=== PATIENT | female | born 1985 | race Two or more races ===

== ENCOUNTER 2023-01-22 21:12 | Emergency (ER) | payer OTHER ==
[~2023-01-22] VITALS: Ht 152.4 cm; Wt 57.6 kg
== END 2023-01-23 06:40 ==
LOC: ER 21:12
PROVIDERS: General Practice
DX: N39.0 Urinary tract infection, site not specified (principal); Z3A.14 14 weeks gestation of pregnancy; Z88.6 Allergy status to analgesic agent

== ENCOUNTER 2023-07-09 09:45 | Inpatient (IN) | payer OTHER ==
[~2023-07-09] VITALS: Ht 160 cm; Wt 3.2 kg
[2023-07-09 12:59] LABS: HEMATOCRIT 36.1 % (36.0-45.00); HEMOGLOBIN 12.1 g/dL (12.0-15.00); MEAN CELL VOLUME 91.3 fL (80.00-100.00); MEAN CORPUSCULAR HEMOGLOBIN 30.7 pg (27.00-32.0); MEAN CORPUSCULAR HGB CONC 33.6 g/dl (32.0-36.0); PLATELET COUNT 174 K/uL (150-450); RED BLOOD COUNT 3.96 M/uL (4.00-6.00); RED CELL DISTRIBUTION WIDTH 14.5 % (11.5-14.5)
[2023-07-09 13:25] LABS: BILIRUBIN TOTAL 0.31 mg/dL (0.3-1.2); CALCIUM 8.5 mg/dL (8.5-10.1); CREATININE SERUM 0.47 mg/dL (0.55-1.02); GFR 149.94; GLOBULINA 3.6 G/DL (2.4-3.5); POTASSIUM 3.86 mEq/L (3.5-5.1); TOTAL PROTEIN 6.6 gm/dL (6.4-8.2)
[2023-07-09 13:27] LABS: INR < 0.93; PARTIAL THROMBOPLASTIN TIME 24.4 SECONDS (22.0-34.0); PROTHROMBIN TIME 9.6 SECONDS (9.0-11.5)
[2023-07-19] MEDS ORDERED: PRENATE ELITE1 EAC2 PO (08:50)
[2023-07-19] MEDS ORDERED: CITRIC ACID/SODIUM CITRATE 30 ML BLIST.PACK PO ONE (11:26)
[2023-07-19] MEDS ORDERED: CEFAZOLIN SODIUM 1,000 MG VIAL ONE (11:26)
[2023-07-19] MEDS ORDERED: ERYTHROMYCIN BASE 3.5 GM OINT...G. OP ONE (13:04)
[2023-07-19] MEDS ORDERED: OXYTOCIN 10 UNITS/ML VIAL ONE (13:04)
[2023-07-19] MEDS ORDERED: CEFAZOLIN SODIUM 1,000 MG VIAL IV SCH (13:15)
[2023-07-19] MEDS ORDERED: CITRIC ACID/SODIUM CITRATE 30 ML BLIST.PACK PO SCH (13:15)
[2023-07-19] MEDS ORDERED: ERYTHROMYCIN BASE 1 GM TUBE OP ONE (13:15)
[2023-07-19] MEDS ORDERED: OXYTOCIN 10 UNITS/ML VIAL IV ONE (13:15)
[2023-07-19] MEDS ORDERED: ONDANSETRON HCL 2 MG/ML VIAL IV PRN (15:45)
[2023-07-19] MEDS ORDERED: MORPHINE SULFATE 4 MG/ML CARTRIDGE IV PRN (15:45)
[2023-07-19] MEDS ORDERED: RINGERS SOLUTION,LACTATED 1,000 ML IV SCH (15:45)
[2023-07-19] MEDS ORDERED: OXYTOCIN 1,000 ML IV SCH (15:45)
[2023-07-19] MEDS ORDERED: KETOROLAC TROMETHAMINE 30 MG VIAL IV SCH (18:00)
[2023-07-20] MEDS ORDERED: SIMETHICONE 125 MG CAPSULE PO SCH (01:00)
[2023-07-20] MEDS ORDERED: ACETAMINOPHEN 500 MG GEL..CAP PO SCH (05:00)
[2023-07-20] MEDS ORDERED: KETOROLAC TROMETHAMINE 10 MG TABLET PO PRN (06:00)
[2023-07-20 07:51] LABS: HEMATOCRIT 33.3 % (36.0-45.00); HEMOGLOBIN 11.1 g/dL (12.0-15.00); MEAN CELL VOLUME 90.4 fL (80.00-100.00); MEAN CORPUSCULAR HEMOGLOBIN 30.2 pg (27.00-32.0); MEAN CORPUSCULAR HGB CONC 33.4 g/dl (32.0-36.0); RED BLOOD COUNT 3.68 M/uL (4.00-6.00); RED CELL DISTRIBUTION WIDTH 15.1 % (11.5-14.5)
[2023-07-20 08:07] LABS: PLATELET COUNT 113 K/uL (150-450)
[2023-07-20] MEDS ORDERED: GABAPENTIN 300 MG CAPSULE PO SCH (09:00)
[2023-07-20] MEDS ORDERED: DOCUSATE CALCIUM 240 MG CAPSULE PO SCH (09:00)
[2023-07-20] MEDS ORDERED: FF) RHO(D) IMMUNE GLOBULIN (POM) IM SCH (09:45)
== END 2023-07-21 14:19 | disposition home or self-care (01) | DRG 785 ==
LOC: SURH 07-19 07:00 → OB/GYN 07-19 08:23 → O/R 07-19 08:23 → SURH 07-19 09:45 → OB/GYN 07-19 14:16
PROVIDERS: ADMIT Obstetrics & Gynecology; ATTEND Obstetrics & Gynecology
PROC: 0UB70ZZ Excision of Bilateral Fallopian Tubes, Open Approach (ICD-10-PCS; 2023-07-19)
PROC: 4A1HXCZ Monitoring of Products of Conception, Cardiac Rate, External Approach (ICD-10-PCS; 2023-07-19)
PROC: 10D00Z1 Extraction of Products of Conception, Low, Open Approach (ICD-10-PCS; principal; 2023-07-19 07:00)
DX: O34.211 Maternal care for low transverse scar from previous cesarean delivery (principal); Z3A.39 39 weeks gestation of pregnancy; Z37.0 Single live birth; Z20.822 Contact with and (suspected) exposure to COVID-19; Z30.2 Encounter for sterilization